=== PATIENT | male | born 1990 | race Caucasian/White ===

== ENCOUNTER 2017-05-13 18:02 | Emergency (ER) | payer SELFPAY ==
[~2017-05-13] VITALS: Ht 200.7 cm; Wt 136.4 kg
[2017-05-13 18:10] VITALS: BP 151/81; PULSE 79; TEMP 98.2
[2017-05-13 19:14] LABS: BASO # 0.1 (0.0-0.2); BASO % 0.8 % (0.0-2.0); EOS # 0.5 (0.0-0.7); EOS % 6.3 % (0-4.0); GRAN # 4.1 (1.4-6.5); GRAN % 53.6 % (42.2-75.2); HEMATOCRIT 40.1 % (42.0-52.0); HEMOGLOBIN 13.9 g/dl (13.5-18.0); LYMPH # 2.3 (1.2-3.4); LYMPH % 30.8 % (20.0-51.0); MEAN CELL VOLUME 86 fl (80.0-100.0); MEAN CORPUSCULAR HEMOGLOBIN 30 pg (27.0-31.0); MEAN CORPUSCULAR HGB CONC 35 g/dl (33.0-37.0); MEAN PLATELET VOLUME 10.2 fl (7.4-10.4); MONO # 0.6 (0.1-0.6); MONO % 8.4 % (1.7-9.3); PLATELET COUNT 279 K/mm3 (130-400); RED BLOOD COUNT 4.64 M/mm3 (4.20-5.60); REDCELL DISTRIBUTION WIDTH-CV 11.7 % (11.5-14.5); WHITE BLOOD COUNT 7.6 K/mm3 (4.8-10.8)
[2017-05-13 19:32] LABS: C-REACTIVE PROTEIN 1.6 mg/dL (0.0-0.9); CALCIUM 9.4 mg/dL (8.4-10.2); CREATININE, serum 0.76 mg/dL (0.66-1.25)
[2017-05-13 19:39] LABS: ERYTHROCYTE SEDIMENTATION RATE 6 mm/hr (0-15)
[2017-05-13] MEDS ORDERED: BACTRIM DS 8001 TAB PO (19:54)
[2017-05-13] MEDS ORDERED: CEPHALEXIN500 M1 PO (19:54)
== END 2017-05-13 20:09 | disposition home or self-care (01) ==
LOC: COL.ER 18:02
PROVIDERS: Nurse Practitioner
DX: R22.41 Localized swelling, mass and lump, right lower limb (principal); I10 Essential (primary) hypertension; F17.210 Nicotine dependence, cigarettes, uncomplicated

== ENCOUNTER 2018-08-26 10:00 | Outpatient (RCR) | payer MEDICAID ==
--- NOTE | 2018-08-15 11:57 | NUR ---
Patient no show for PICC insertion. Lorna Finch contacted Dr. Parisi's office. Doctor office will contact patient and re-schedule PICC placement for in am if able to get ahold of patient. Joon Wilder RN informed.
[2018-08-19 09:45] LABS: HEMATOCRIT 37.9 % (42.0-52.0); HEMOGLOBIN 13.1 g/dl (13.5-18.0); MEAN CELL VOLUME 84 fl (80.0-100.0); MEAN CORPUSCULAR HEMOGLOBIN 29 pg (27.0-31.0); MEAN CORPUSCULAR HGB CONC 35 g/dl (33.0-37.0); MEAN PLATELET VOLUME 10.5 fl (7.4-10.4); PLATELET COUNT 234 K/mm3 (130-400); REDCELL DISTRIBUTION WIDTH-CV 12.7 % (11.5-14.5)
--- NOTE | 2018-08-19 09:45 | NUR ---
PICC intact right upper arm with sterile dressing change done with insertion site cleansed with chloraprep x 1, skin prep, stat lock, and tegaderm applied. no signs or symptoms of IV complications noted. no concerns voiced. re-wrapped with claudia to protect catheter. to return next Wednesday for cares. voiced understanding of instructions.
[2018-08-19 09:47] VITALS: BP 111/54; PULSE 63; TEMP 97.2
[2018-08-19 09:51] LABS: BAND 21 % (0-10); LYMPHOCYTE 16 % (20.0-51.0); NEUTROPHILS 58 % (42.0-75.2); PLATELET ESTIMATE NORMAL (NORMAL)
[~2018-08-26] VITALS: Ht 198.1 cm; Wt 143.0 kg
[~2018-08-26 10:00] MED LIST: BACTRIM DS 8001 TAB PO; CEPHALEXIN500 M1 PO; NEURONTIN300 MG/CAP PO; ZOFRAN 4MG T4 MG/TAB PO; ZOFRAN ODT4 MG PO
--- NOTE | 2018-08-26 10:15 | NUR ---
PICC intact right upper arm. With sterile technique right upper arm PICC dressing change done with insertion site cleansed with ChloraPrep 1, StatLock, skin prep, and Tegaderm applied. No signs or symptoms of IV complications noted. No concerns voiced. With Lalo to protect catheter. Patient to return next week for cares. Patient voiced understanding of instructions.
[2018-08-26 10:16] VITALS: BP 125/74; PULSE 93; TEMP 98.3
[2018-08-26 10:17] LABS: HEMATOCRIT 38.6 % (42.0-52.0); HEMOGLOBIN 13.2 g/dl (13.5-18.0); MEAN CELL VOLUME 85 fl (80.0-100.0); MEAN CORPUSCULAR HEMOGLOBIN 29 pg (27.0-31.0); MEAN CORPUSCULAR HGB CONC 34 g/dl (33.0-37.0); PLATELET COUNT 263 K/mm3 (130-400); RED BLOOD COUNT 4.53 M/mm3 (4.20-5.60); REDCELL DISTRIBUTION WIDTH-CV 12.3 % (11.5-14.5)
[2018-08-26 10:47] LABS: BAND 42 % (0-10); EOSINOPHIL 10 % (0-4); LYMPHOCYTE 25 % (20.0-51.0); METAMYELOCYTE 2 % (0-0); NEUTROPHILS 19 % (42.0-75.2); PLATELET ESTIMATE NORMAL (NORMAL)
[2018-08-26 10:48] LABS: POLYCHROMASIA 1+
== END 2018-08-29 08:23 | disposition home or self-care (01) ==
LOC: EUO 10:00
PROVIDERS: Internal Medicine Medical Oncology
DX: C49.21 Malignant neoplasm of connective and soft tissue of right lower limb, including hip (principal); Z45.2 Encounter for adjustment and management of vascular access device; Z95.9 Presence of cardiac and vascular implant and graft, unspecified; Z48.00 Encounter for change or removal of nonsurgical wound dressing

== ENCOUNTER 2018-09-12 08:24 | Inpatient (IN) | payer MEDICAID ==
[~2018-09-12] VITALS: Ht 198.1 cm; Wt 140.2 kg
[2018-09-12 08:50] VITALS: BP 123/65; PULSE 83; TEMP 98.2
[2018-09-12 08:51] VITALS: BP 123/65; PULSE 83; TEMP 98.2
[2018-09-12 09:17] LABS: HEMATOCRIT 37.4 % (42.0-52.0); HEMOGLOBIN 12.7 g/dl (13.5-18.0); MEAN CELL VOLUME 86 fl (80.0-100.0); MEAN CORPUSCULAR HEMOGLOBIN 29 pg (27.0-31.0); MEAN CORPUSCULAR HGB CONC 34 g/dl (33.0-37.0); MEAN PLATELET VOLUME 10.7 fl (7.4-10.4); PLATELET COUNT 346 K/mm3 (130-400); RED BLOOD COUNT 4.34 M/mm3 (4.20-5.60)
--- NOTE | 2018-09-12 09:20 | NUR ---
Pt alert and oriented and denies pain, SOB, or dizziness. Pt has friend at bedside. Pt PICC in right upper is going to be changed to double lumen for hydration and chemo. Pt has call light in reach and oriented to room. Pt assessment completed. 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 Pt denies needs at this time.
[2018-09-12 09:27] LABS: ALBUMIN 4.2 gm/dL (3.5-5.0); BILIRUBIN,TOTAL 0.6 mg/dL (0.0-1.0); CALCIUM 9.5 mg/dL (8.4-10.2); CREATININE, serum 0.62 mg/dL (0.66-1.25); MAGNESIUM 1.7 mg/dL (1.6-2.3); PHOSPHOROUS 3.8 mg/dL (2.5-4.5); POTASSIUM 4.1 mmol/L (3.4-5.0); TOTAL PROTEIN 7.2 gm/dL (6.4-8.2)
[2018-09-12 09:51] LABS: BASOPHIL 1 % (0-2); LYMPHOCYTE 23 % (20.0-51.0); NEUTROPHILS 72 % (42.0-75.2); PLATELET ESTIMATE NORMAL (NORMAL)
--- NOTE | 2018-09-12 09:56 | NUR ---
Pt consent for chemotherapy was signed after current plan was reviewed with pt. I did speak with Dr Parisi about some order clarification and was given an order for a dual lumen PICC to replace the single lumen PICC. Pt was given printed information on the chemotherapy drugs he will recieve with this cycle including ifosfamide and etoposide, along with mesna as he recieved before with first round of chemotherapy. He reports a significant wt loss since last admission. We did discuss food issues and he reports as good appetite but still wt loss. Will ask dietary to talk with him during his stay.
--- NOTE | 2018-09-12 10:28 | NUR ---
Hydration fluids started per purple line of PICC at completion of PICC replacement. Pt eating [employer] for breakfast and in good spirits.
[2018-09-12 11:14] LABS: COLLECTION METHOD CLEAN CATCH
[2018-09-12 11:22] LABS: MUCOUS Present /lpf; PH 7 (5-8); SQUAMOUS EPITHELIAL None Seen /hpf; URINE APPEARANCE Clear; URINE BACTERIA None Seen /hpf; URINE BILIRUBIN Negative (NEGATIVE); URINE BLOOD Negative (NEGATIVE); URINE COLOR Yellow; URINE GLUCOSE Negative (NEGATIVE); URINE KETONE Negative (NEGATIVE); URINE LEUKOCYTE ESTERASE Negative (NEGATIVE); URINE NITRATE Negative (NEGATIVE); URINE PROTEIN(semi-quant) Negative (NEGATIVE); URINE RBC 0-2 /hpf; URINE UROBILINOGEN Negative (NEGATIVE); URINE WBC 0-2 /hpf
[2018-09-12 12:08] VITALS: BP 125/73; PULSE 97; TEMP 97.4
--- NOTE | 2018-09-12 12:28 | NUR ---
Anticipate start of chemotherapy at 1pm so have started antiemetics to infuse through red line, starting with Emend which it is recommended be given 1 hour ahead of chemotherapy.
--- NOTE | 2018-09-12 13:58 | NUR ---
Anti emetics have been given in last hour of hydration. Ifosfamide and etoposide were verified correct with Kassie Gutierrez RN by comparing printed order with printed label. New hydration bag hung with Mg, K+ to infuse over 12 hours. Following chemotherapy administration protocal, appropriate PPE was donned and Ifosfamide and etoposide hung to infuse one after the other as ordered. Appropriate chemotherapy signage at door and chemotherapy PPE supplies are outside the door. Pt has fallen asleep at this time, lights dimmed.
--- NOTE | 2018-09-12 14:10 | NUR ---
Neuro check done prior to start of chemotherapy. Pt cooperative. 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
[2018-09-12 17:14] VITALS: BP 121/73; PULSE 96; TEMP 97.5
--- NOTE | 2018-09-12 18:44 | NUR ---
Pt alert and oriented and stable this afternoon. Pt chemo meds administered by Ame SALEEM. Pt denies pain. Pt reported constipation and stool softners added by Dr. Beach. Pt has call light in reach. Chemo precautions in place. Pt denies nausea and eating supper without issue now.
--- NOTE | 2018-09-12 19:16 | NUR ---
Chemotherapy has infused and line was flushed with NS 20ml upon completion.
[2018-09-12 20:52] VITALS: BP 123/62; PULSE 103; TEMP 97.9
--- NOTE | 2018-09-12 21:38 | NUR ---
Up to restroom and returned to bed, standby assist. Assessment complete. Lungs clear. Heart sounds normal. Pulses strong. Denies pain. Denies needs at this time. Infusion going to PICC in right upper arm. Denies any change in sx at this time.
[2018-09-13 00:32] VITALS: BP 120/67; PULSE 92; TEMP 98.4
--- NOTE | 2018-09-13 03:49 | NUR ---
Up to restroom and returned to bed. Call light in reach.
[2018-09-13 04:22] VITALS: BP 134/63; PULSE 74; TEMP 97.6
--- NOTE | 2018-09-13 04:23 | NUR ---
Resting in bed on phone. Denies needs. Call light in reach.
--- NOTE | 2018-09-13 06:11 | NUR ---
Uneventful night. Resting in bed this AM on cell phone. Denied needs. Call light in reach.
[2018-09-13 06:20] LABS: BASO % 0.1 % (0.0-2.0); GRAN # 10.7 (1.4-6.5); GRAN % 89.5 % (42.2-75.2); HEMOGLOBIN 11.9 g/dl (13.5-18.0); LYMPH # 0.5 (1.2-3.4); LYMPH % 4.4 % (20.0-51.0); MEAN CELL VOLUME 88 fl (80.0-100.0); MEAN CORPUSCULAR HEMOGLOBIN 29 pg (27.0-31.0); MEAN CORPUSCULAR HGB CONC 33 g/dl (33.0-37.0); MONO # 0.7 (0.1-0.6); MONO % 5.5 % (1.7-9.3); PLATELET COUNT 346 K/mm3 (130-400); RED BLOOD COUNT 4.09 M/mm3 (4.20-5.60)
[2018-09-13 06:26] LABS: HEMATOCRIT 35.8 % (42.0-52.0)
[2018-09-13 06:45] LABS: CALCIUM 9.2 mg/dL (8.4-10.2); CREATININE, serum 0.62 mg/dL (0.66-1.25); POTASSIUM 4.2 mmol/L (3.4-5.0)
[2018-09-13 07:05] VITALS: BP 118/61; PULSE 75; TEMP 98.4
[2018-09-13 08:49] LABS: COLLECTION METHOD CLEAN CATCH
[2018-09-13 08:59] LABS: PH 7 (5-8); SQUAMOUS EPITHELIAL None Seen /hpf; URINE APPEARANCE Clear; URINE BACTERIA None Seen /hpf; URINE BILIRUBIN Negative (NEGATIVE); URINE BLOOD Negative (NEGATIVE); URINE COLOR Straw; URINE GLUCOSE Negative (NEGATIVE); URINE KETONE 1+ (NEGATIVE); URINE LEUKOCYTE ESTERASE Negative (NEGATIVE); URINE NITRATE Negative (NEGATIVE); URINE PROTEIN(semi-quant) Negative (NEGATIVE); URINE RBC 0-2 /hpf; URINE UROBILINOGEN Negative (NEGATIVE); URINE WBC 0-2 /hpf
--- NOTE | 2018-09-13 08:59 | NUR ---
Pt resting in bed with call light within reach. IVF infusing to right upper PICC without complications. Good urine output. Denies further needs at this tiem. Will continue to monitor.
--- NOTE | 2018-09-13 09:00 | NUR ---
PICC intact right upper arm. With sterile technique right upper arm PICC dressing change done with insertion site cleansed with ChloraPrep 1, gauze removed with no drainage noted, skin prep, StatLock, and Tegaderm applied. No signs or symptoms of IV complications noted. No concerns voiced. We'll continue to monitor.
--- NOTE | 2018-09-13 10:42 | NUR ---
Pt moved to room 358 with belongings due pt in contact isolation in next to his old room. Pt agreeable. At this point he is denying a problem with nausea but eating lightly this morning. IV site without issue and hydration fluids infusing well. No blood in urine per urinalysis or by visual appearance.
[2018-09-13 11:47] VITALS: BP 121/61; PULSE 86; TEMP 98.1
--- NOTE | 2018-09-13 14:11 | NUR ---
SW attended clinical rounding and met with patient to discuss discharge planning. Patient lives in [place] with his and 5 kids. He is unable to work due to the chemo and amputation. when discharged from here last time patient was set up with [facility] and he obtains his medications from [facility] in [place]. Patient sees Dr Parisi for his cancer treatments. DEREK will continue to follow.
[2018-09-13 15:03] VITALS: BP 140/59; PULSE 91; TEMP 97.5
--- NOTE | 2018-09-13 17:34 | NUR ---
Pt had uneventful day. Chemo infusing per orders, administered by HARPER Mccloud. Denies further needs at this time; will continue to monitor.
--- NOTE | 2018-09-13 19:07 | NUR ---
Report given to HARPER Dominguez. Pt resting in bed.
[2018-09-13 20:49] VITALS: BP 135/67; PULSE 95; TEMP 97.5
--- NOTE | 2018-09-13 22:33 | NUR ---
Resting in bed at time of assessment. Lungs clear. Heart sounds normal. Denies pain. Patient reports he is "bored" in room. Placed patient in wheelchair and put a mask on and walked patient in hallways. Denies other needs at this time. Call light in reach.
[2018-09-14 00:31] VITALS: BP 135/69; PULSE 73; TEMP 97.7
--- NOTE | 2018-09-14 01:00 | NUR ---
Resting in bed. Denies needs. Call light in reach.
--- NOTE | 2018-09-14 03:30 | NUR ---
In bed on phone. Denied needs. Call light in reach.
[2018-09-14 05:11] VITALS: BP 118/57; PULSE 76; TEMP 97.7
--- NOTE | 2018-09-14 06:33 | NUR ---
Uneventful night. Resting in bed this AM. Call light in reach.
--- NOTE | 2018-09-14 07:00 | NUR ---
Pt resting soundly upon entering room. Pt independently turned self to other side Reported from coin purse framer RN - pt prefers to stay up all night on electronic devices and sleeps throughout the morning hours. Will come back when AM meds are due to perform assessment.
[2018-09-14 08:01] VITALS: BP 127/68; PULSE 62; TEMP 98.2
[2018-09-14 08:42] LABS: COLLECTION METHOD CLEAN CATCH
[2018-09-14 08:50] LABS: PH 7 (5-8); SQUAMOUS EPITHELIAL 0-2 /hpf; URINE APPEARANCE Clear; URINE BACTERIA None Seen /hpf; URINE BILIRUBIN Negative (NEGATIVE); URINE BLOOD Negative (NEGATIVE); URINE COLOR Yellow; URINE GLUCOSE Negative (NEGATIVE); URINE KETONE 2+ (NEGATIVE); URINE LEUKOCYTE ESTERASE Negative (NEGATIVE); URINE NITRATE Negative (NEGATIVE); URINE PROTEIN(semi-quant) Negative (NEGATIVE); URINE RBC None Seen /hpf; URINE UROBILINOGEN Negative (NEGATIVE); URINE WBC 0-2 /hpf
--- NOTE | 2018-09-14 08:54 | NUR ---
UA collected and to lab. No blood reported in specimen. Will proceed with day #3 chemotherapy.
[2018-09-14 09:52] LABS: BASO % 0.1 % (0.0-2.0); GRAN # 8.1 (1.4-6.5); GRAN % 82.3 % (42.2-75.2); HEMOGLOBIN 11.7 g/dl (13.5-18.0); LYMPH # 0.8 (1.2-3.4); LYMPH % 8.2 % (20.0-51.0); MEAN CELL VOLUME 88 fl (80.0-100.0); MEAN CORPUSCULAR HEMOGLOBIN 30 pg (27.0-31.0); MEAN CORPUSCULAR HGB CONC 34 g/dl (33.0-37.0); MEAN PLATELET VOLUME 10.8 fl (7.4-10.4); MONO # 0.9 (0.1-0.6); MONO % 8.9 % (1.7-9.3); PLATELET COUNT 326 K/mm3 (130-400); RED BLOOD COUNT 3.95 M/mm3 (4.20-5.60); REDCELL DISTRIBUTION WIDTH-CV 14.5 % (11.5-14.5)
[2018-09-14 09:53] LABS: HEMATOCRIT 34.9 % (42.0-52.0)
[2018-09-14 10:03] LABS: CALCIUM 9.2 mg/dL (8.4-10.2); CREATININE, serum 0.62 mg/dL (0.66-1.25)
[2018-09-14 10:59] VITALS: BP 129/59; PULSE 89; TEMP 97.5
--- NOTE | 2018-09-14 12:19 | NUR ---
First visit from the hospice music therapist. No needs right now.
--- NOTE | 2018-09-14 15:26 | NUR ---
Pt has been tolerating his chemotherapy well. Zofran and decadron given prechemotherapy. Pt moved to room 359 to get most distance from other isolation patients. Chemotherapy precautions remain in place. Signage at door. Chemotherapy drugs verified correct with Kathy Das RN by comparing printed label and written orders. After + blood return verified, Ifosfamide infusion started to run over three hours and then etoposide infusion is to start. Jesu Maldonado RN is to discontinue the infusion upon completion.
[2018-09-14 16:27] VITALS: BP 139/65; PULSE 83; TEMP 98.4
--- NOTE | 2018-09-14 20:21 | NUR ---
Resting in bed. Assessment complete. Lungs clear. Heart sounds normal. Denies pain. Denies needs at this time. Chemo infusion complete and disconnected by HARPER Nails. Call light in reach.
[2018-09-14 22:12] VITALS: BP 127/62; PULSE 93; TEMP 98.5
--- NOTE | 2018-09-15 01:03 | NUR ---
UP to restroom and returned to bed.
[2018-09-15 01:46] VITALS: BP 105/43; PULSE 59; TEMP 97.6
--- NOTE | 2018-09-15 04:01 | NUR ---
Resting in bed. Call light in reach.
[2018-09-15 05:26] VITALS: BP 121/64; PULSE 55; TEMP 97.6
[2018-09-15 06:01] LABS: GRAN # 6.5 (1.4-6.5); GRAN % 79.6 % (42.2-75.2); MEAN CELL VOLUME 89 fl (80.0-100.0); MEAN CORPUSCULAR HEMOGLOBIN 29 pg (27.0-31.0); MEAN CORPUSCULAR HGB CONC 33 g/dl (33.0-37.0); MEAN PLATELET VOLUME 11.1 fl (7.4-10.4); MONO # 0.6 (0.1-0.6); MONO % 7.9 % (1.7-9.3); PLATELET COUNT 296 K/mm3 (130-400); RED BLOOD COUNT 3.74 M/mm3 (4.20-5.60); REDCELL DISTRIBUTION WIDTH-CV 14.2 % (11.5-14.5)
[2018-09-15 06:03] LABS: HEMATOCRIT 33.4 % (42.0-52.0)
--- NOTE | 2018-09-15 06:18 | NUR ---
Uneventful night. Resting in bed this AM. Call light in reach.
[2018-09-15 06:22] LABS: CALCIUM 8.9 mg/dL (8.4-10.2); CREATININE, serum 0.58 mg/dL (0.66-1.25); MAGNESIUM 2.1 mg/dL (1.6-2.3); POTASSIUM 4.1 mmol/L (3.4-5.0)
--- NOTE | 2018-09-15 07:15 | NUR ---
Pt AAOX3 in good spirits stating "these days required days to stay in hospital have flown by. Wednesday will be here before I know it where I will get to spend time with my and 5 children". Call light within reach. No compalints at this time
[2018-09-15 08:19] VITALS: BP 137/86; PULSE 60; TEMP 97.6
[2018-09-15 09:41] LABS: COLLECTION METHOD CLEAN CATCH
[2018-09-15 09:52] LABS: MUCOUS Present /lpf; PH 7 (5-8); SQUAMOUS EPITHELIAL None Seen /hpf; URINE APPEARANCE Cloudy; URINE BACTERIA Rare /hpf; URINE BILIRUBIN Negative (NEGATIVE); URINE BLOOD Negative (NEGATIVE); URINE COLOR Yellow; URINE GLUCOSE Negative (NEGATIVE); URINE KETONE 2+ (NEGATIVE); URINE LEUKOCYTE ESTERASE Negative (NEGATIVE); URINE NITRATE Negative (NEGATIVE); URINE PROTEIN(semi-quant) Negative (NEGATIVE); URINE RBC 0-2 /hpf; URINE UROBILINOGEN Negative (NEGATIVE); URINE WBC 0-2 /hpf
[2018-09-15 11:27] VITALS: BP 115/55; PULSE 84; TEMP 98
--- NOTE | 2018-09-15 13:28 | NUR ---
Premedications started with change of IV bag and tubing for hydration fluids. UA is free of blood. Neuro exam is normal. + blood return verified per purple line.
--- NOTE | 2018-09-15 15:29 | NUR ---
Chemotherapy delayed with tubing malfunction but started as soon as drug returned from pharmacy. Drug was verified correct with Todd Stark RN by comparing printed order with printed label. Scanner is not working in room so drug administration was manually entered after verification of pt's identity. I have contacted office and plan is for pt to have neulasta placed on Wednesday after he is discharged from the hospital at the office of Dr Parisi. Sarahi is the nurse who would like to be called by our nursing staff at discharge at the following number [phone]. We will plan on chemotherapy in three weeks.
[2018-09-15 15:36] VITALS: BP 122/64; PULSE 96; TEMP 97.4
[2018-09-15 18:49] VITALS: BP 123/56; PULSE 92; TEMP 98.3
--- NOTE | 2018-09-15 18:56 | NUR ---
Since taking over care the pt has been resting quietly. He has remained free of pain. Pt is sitting up in the bed watching TV at this time and he denies further needs. Call light within reach. Report given to HARPER Castaneda.
--- NOTE | 2018-09-15 21:46 | NUR ---
Pt resting in bed napping, in good spirits, talkative and appropriate, no C/O pain at this time, shift assessments completed with no signficant findings, left Pt bed in lowest position, call light in reach.
[2018-09-16] VITALS (7 sets, daily range): BP systolic 111–143; BP diastolic 53–86; PULSE 62–99; TEMP 97.8–98.6
--- NOTE | 2018-09-16 06:16 | NUR ---
Pt slept well through the night, no C/O of pain, has a very positive attitude and pleasant. VS have been stable during the night.
[2018-09-16 06:20] LABS: BASO % 0.2 % (0.0-2.0); GRAN # 4.5 (1.4-6.5); HEMOGLOBIN 11.3 g/dl (13.5-18.0); LYMPH # 1.1 (1.2-3.4); LYMPH % 18.4 % (20.0-51.0); MEAN CELL VOLUME 88 fl (80.0-100.0); MEAN CORPUSCULAR HEMOGLOBIN 29 pg (27.0-31.0); MEAN CORPUSCULAR HGB CONC 33 g/dl (33.0-37.0); MEAN PLATELET VOLUME 11.3 fl (7.4-10.4); MONO # 0.3 (0.1-0.6); MONO % 5.7 % (1.7-9.3); PLATELET COUNT 286 K/mm3 (130-400); RED BLOOD COUNT 3.84 M/mm3 (4.20-5.60); REDCELL DISTRIBUTION WIDTH-CV 13.8 % (11.5-14.5)
[2018-09-16 06:32] LABS: HEMATOCRIT 33.8 % (42.0-52.0)
[2018-09-16 06:38] LABS: CALCIUM 8.9 mg/dL (8.4-10.2); CREATININE, serum 0.61 mg/dL (0.66-1.25); MAGNESIUM 2.1 mg/dL (1.6-2.3)
--- NOTE | 2018-09-16 08:45 | NUR ---
Assessment complete. Pt is AXO X3, denies having any pain at this time. Breathing is even and unlabored on room air. R upper arm PICC line infusing, remains free of complications, and is CDI. Pt is sitting up in the bed eating his breakfast at this time and he denies further needs. Call light within reach, will continue to monitor.
[2018-09-16 10:54] LABS: COLLECTION METHOD CLEAN CATCH
[2018-09-16 11:08] LABS: MUCOUS Present /lpf; PH 8 (5-8); SQUAMOUS EPITHELIAL None Seen /hpf; URINE APPEARANCE Cloudy; URINE BACTERIA None Seen /hpf; URINE BILIRUBIN Negative (NEGATIVE); URINE BLOOD Negative (NEGATIVE); URINE COLOR Yellow; URINE GLUCOSE Negative (NEGATIVE); URINE KETONE 2+ (NEGATIVE); URINE LEUKOCYTE ESTERASE Negative (NEGATIVE); URINE NITRATE Negative (NEGATIVE); URINE PROTEIN(semi-quant) Negative (NEGATIVE); URINE RBC None Seen /hpf; URINE UROBILINOGEN Negative (NEGATIVE); URINE WBC 0-2 /hpf
--- NOTE | 2018-09-16 11:28 | NUR ---
Pt is on day 5 of chemotherapy with ifosfamide and etoposide and is tolerating well. He denies nausea but reports his appetite is less today. He is still eating quite well. We reviewed that he will continue to have weekly labs with his PICC line care on Fridays. Our staff will call Danielle, the office nurse, to advise her of discharge and she will meet him at the office to given the neulasta injection. Her number is [phone].
--- NOTE | 2018-09-16 13:10 | NUR ---
PICC intact right upper arm. With sterile technique right upper arm PICC dressing change done with insertion site cleansed with ChloraPrep 1, chlorhexidine impregnated disc applied, skin prep, StatLock, and Tegaderm applied. No signs or symptoms of IV complications noted. No concerns voiced. Plan is for patient to return to express unit next Wednesday for PICC cares. Patient voiced understanding of instructions.
--- NOTE | 2018-09-16 14:32 | NUR ---
Premedications have infused. Ifosfamide and etoposide verified correct with Karyna Lewis RN by comparing printed label with printed orders. Using appropriate chemotherapy precautions, ifosfamide was started per red port to infused and then be followed by etoposide. Jesu Maldonado RN, ghent superviosor was notified of start of chemotherapy and will be available to dc when completed around 0. Report to Roger about discharge plan. Pt anxious for discharge tomorrow.
--- NOTE | 2018-09-16 18:34 | NUR ---
Pt has been resting on and off throughout the day. He has remained free of pain. Pt is sitting up in the bed watching TV at this time and he denies further needs. Call light within reach.
--- NOTE | 2018-09-16 18:56 | NUR ---
Report given to HARPER Hernandez.
--- NOTE | 2018-09-16 21:46 | NUR ---
Patient resting in bed, chemotherapy stopped/disconnected by boiler house operator. Denies pain. Assessment completed, VSS. No further needs at this time.
[2018-09-17 03:38] VITALS: BP 118/60; PULSE 64; TEMP 97.5
--- NOTE | 2018-09-17 05:27 | NUR ---
Patient slept on/off last night, denies pain, VSS. PICC site free of complciations.
[2018-09-17 06:18] LABS: EOS % 0.2 % (0-4.0); GRAN # 3.9 (1.4-6.5); GRAN % 74.4 % (42.2-75.2); HEMATOCRIT 33.8 % (42.0-52.0); HEMOGLOBIN 11.2 g/dl (13.5-18.0); LYMPH # 1.2 (1.2-3.4); LYMPH % 22.3 % (20.0-51.0); MEAN CELL VOLUME 88 fl (80.0-100.0); MEAN CORPUSCULAR HEMOGLOBIN 29 pg (27.0-31.0); MEAN CORPUSCULAR HGB CONC 33 g/dl (33.0-37.0); MEAN PLATELET VOLUME 10.9 fl (7.4-10.4); MONO # 0.1 (0.1-0.6); MONO % 2.7 % (1.7-9.3); PLATELET COUNT 282 K/mm3 (130-400); RED BLOOD COUNT 3.86 M/mm3 (4.20-5.60); REDCELL DISTRIBUTION WIDTH-CV 13.4 % (11.5-14.5)
[2018-09-17 06:36] LABS: CALCIUM 8.8 mg/dL (8.4-10.2); CREATININE, serum 0.6 mg/dL (0.66-1.25); MAGNESIUM 2.1 mg/dL (1.6-2.3)
--- NOTE | 2018-09-17 07:00 | NUR ---
Report received from HARPER Hernandez. Pt in bed resting, denies needs, will continue to monitor.
[2018-09-17 07:58] VITALS: BP 123/69; PULSE 64; TEMP 97.7
--- NOTE | 2018-09-17 08:06 | NUR ---
Pt feeling well, resting in bed, anticipating discharge today to go home to family. Denies pain, nausea, vomiting. Urine is yellow and clear. CORTES PICC good blood return and flushes well. Purple port has IVF running. Assessmenet charted, will continue to monitor.
--- NOTE | 2018-09-17 11:48 | NUR ---
Discharge teaching completed at this time. Called Danielle at Dr. Parisi's office, they will be adminstering his medications and meeting him there shortly. PICC wrapped with RUBEN wrap and heparinized. Discharge packet given. Pt verbalized understanding. Discharged out by myself, left with all belongings, friend to drive to Ailin's office. Criteria met.
== END 2018-09-17 11:48 | disposition home or self-care (01) | DRG 847 ==
LOC: MEDICAL 08:24
PROVIDERS: Internal Medicine Medical Oncology; Physician Assistant; ADMIT Internal Medicine
PROC: 02HV33Z Insertion of Infusion Device into Superior Vena Cava, Percutaneous Approach (ICD-10-PCS; principal; 2018-09-12)
PROC: 02PYX3Z Removal of Infusion Device from Great Vessel, External Approach (ICD-10-PCS; 2018-09-12)
DX: Z51.11 Encounter for antineoplastic chemotherapy (principal); C40.31 Malignant neoplasm of short bones of right lower limb; C78.02 Secondary malignant neoplasm of left lung; Z23 Encounter for immunization; Z89.511 Acquired absence of right leg below knee; I10 Essential (primary) hypertension; F41.9 Anxiety disorder, unspecified; Z87.891 Personal history of nicotine dependence; K59.00 Constipation, unspecified
CPT/HCPCS: 99223-AI; 99231-AI; 99232-AI; 99239; C1751; C1894; J1100; J1453; J1650; J2405; J3475; J3480; J7030; J7040; J9181; J9208; J9209

== ENCOUNTER 2018-11-25 10:00 | Outpatient (RCR) | payer MEDICAID ==
--- NOTE | 2018-09-02 09:15 | NUR ---
patient here for cares in the express unit. With sterile technique right upper arm PICC dressing change done with insertion site cleansed with ChloraPrep 1, skin prep, StatLock, and Tegaderm applied. No signs or symptoms of IV complications noted. Ears voiced. Patient to return next Wednesday for cares. Voiced understanding of instructions.
[2018-09-02 09:29] VITALS: BP 142/76; PULSE 85; TEMP 98
[2018-09-02 09:38] LABS: HEMATOCRIT 39.6 % (42.0-52.0); HEMOGLOBIN 13.6 g/dl (13.5-18.0); MEAN CELL VOLUME 85 fl (80.0-100.0); MEAN CORPUSCULAR HEMOGLOBIN 29 pg (27.0-31.0); MEAN CORPUSCULAR HGB CONC 34 g/dl (33.0-37.0); MEAN PLATELET VOLUME 11.3 fl (7.4-10.4); PLATELET COUNT 160 K/mm3 (130-400); RED BLOOD COUNT 4.68 M/mm3 (4.20-5.60); REDCELL DISTRIBUTION WIDTH-CV 12.9 % (11.5-14.5)
[2018-09-02 09:48] LABS: ALBUMIN 4.4 gm/dL (3.5-5.0); BILIRUBIN,TOTAL 0.4 mg/dL (0.0-1.0); CALCIUM 9.6 mg/dL (8.4-10.2); CREATININE, serum 0.71 mg/dL (0.66-1.25); POTASSIUM 4.3 mmol/L (3.4-5.0); TOTAL PROTEIN 7.5 gm/dL (6.4-8.2)
[2018-09-02 10:17] LABS: BAND 9 % (0-10); EOSINOPHIL 1 % (0-4); LYMPHOCYTE 31 % (20.0-51.0); METAMYELOCYTE 1 % (0-0); NEUTROPHILS 51 % (42.0-75.2)
[2018-09-02 10:18] LABS: PLATELET ESTIMATE NORMAL (NORMAL)
--- NOTE | 2018-09-09 10:00 | NUR ---
PICC intact right upper arm with sterile dressing change done with insertion site cleansed with chloraprep x 1, skin prep, stat lock, and tegaderm applied. no signs or symptoms of IV complications noted. no concerns voiced. patient plans to return on Wednesday for chemotherapy.
[2018-09-09 10:21] VITALS: BP 134/72; PULSE 85; TEMP 97.5
[2018-09-09 10:29] LABS: HEMOGLOBIN 13.2 g/dl (13.5-18.0); MEAN CELL VOLUME 86 fl (80.0-100.0); MEAN CORPUSCULAR HEMOGLOBIN 29 pg (27.0-31.0); MEAN CORPUSCULAR HGB CONC 34 g/dl (33.0-37.0); MEAN PLATELET VOLUME 10.8 fl (7.4-10.4); PLATELET COUNT 362 K/mm3 (130-400); RED BLOOD COUNT 4.55 M/mm3 (4.20-5.60); REDCELL DISTRIBUTION WIDTH-CV 13.6 % (11.5-14.5)
[2018-09-09 10:41] LABS: BAND 4 % (0-10); EOSINOPHIL 1 % (0-4); LYMPHOCYTE 26 % (20.0-51.0); NEUTROPHILS 61 % (42.0-75.2); PLATELET ESTIMATE NORMAL (NORMAL)
[2018-09-23 09:00] VITALS: BP 129/83; PULSE 101; TEMP 98.3
--- NOTE | 2018-09-23 09:15 | NUR ---
patient in the express unit for cares. PICC intact right upper arm. With sterile technique right upper arm PICC dressing change done with insertion site cleansed with ChloraPrep 1, chlorhexidine impregnated disc applied, skin prep, StatLock, and Tegaderm applied. No signs or symptoms of IV complications noted. No concerns voiced. Patient to return to express unit next Wednesday for cares. Patient voiced understanding of instructions. Arm wrapped with Lalo to protect catheter.
[2018-09-23 09:41] LABS: HEMATOCRIT 34.7 % (42.0-52.0); HEMOGLOBIN 11.7 g/dl (13.5-18.0); MEAN CELL VOLUME 87 fl (80.0-100.0); MEAN CORPUSCULAR HEMOGLOBIN 30 pg (27.0-31.0); MEAN CORPUSCULAR HGB CONC 34 g/dl (33.0-37.0); MEAN PLATELET VOLUME 9.7 fl (7.4-10.4); PLATELET COUNT 167 K/mm3 (130-400); RED BLOOD COUNT 3.97 M/mm3 (4.20-5.60); REDCELL DISTRIBUTION WIDTH-CV 13.2 % (11.5-14.5)
[2018-09-23 09:50] LABS: ALBUMIN 4.4 gm/dL (3.5-5.0); BILIRUBIN,TOTAL 0.4 mg/dL (0.0-1.0); CALCIUM 9.8 mg/dL (8.4-10.2); CREATININE, serum 0.67 mg/dL (0.66-1.25); MAGNESIUM 1.7 mg/dL (1.6-2.3); TOTAL PROTEIN 7.5 gm/dL (6.4-8.2)
[2018-09-23 09:57] LABS: POTASSIUM 4.3 mmol/L (3.4-5.0)
[2018-09-23 09:59] LABS: BAND 38 % (0-10); EOSINOPHIL 4 % (0-4); LYMPHOCYTE 17 % (20.0-51.0); METAMYELOCYTE 5 % (0-0); MYELOCYTE 1 % (0-0); NEUTROPHILS 9 % (42.0-75.2); NUCLEATED RED BLOOD CELL 6 (0-6)
[2018-09-23 10:02] LABS: PLATELET ESTIMATE NORMAL (NORMAL); POLYCHROMASIA 1+
[2018-09-26 08:07] LABS: PATHOLOGY DIFF REVIEW OK
[2018-09-30 11:02] LABS: HEMOGLOBIN 12.4 g/dl (13.5-18.0); MEAN CELL VOLUME 87 fl (80.0-100.0); MEAN CORPUSCULAR HEMOGLOBIN 29 pg (27.0-31.0); MEAN CORPUSCULAR HGB CONC 34 g/dl (33.0-37.0); MEAN PLATELET VOLUME 10.3 fl (7.4-10.4); PLATELET COUNT 130 K/mm3 (130-400); RED BLOOD COUNT 4.25 M/mm3 (4.20-5.60); REDCELL DISTRIBUTION WIDTH-CV 13.5 % (11.5-14.5)
[2018-09-30 11:17] VITALS: BP 132/84; PULSE 94
[2018-09-30 11:51] LABS: BAND 9 % (0-10); BASOPHIL 3 % (0-2); EOSINOPHIL 3 % (0-4); LYMPHOCYTE 20 % (20.0-51.0); MYELOCYTE 1 % (0-0); NEUTROPHILS 60 % (42.0-75.2); NUCLEATED RED BLOOD CELL 1 (0-6); PLATELET ESTIMATE DECREASED (NORMAL)
[2018-09-30 11:52] LABS: POLYCHROMASIA 1+
--- NOTE | 2018-10-07 10:00 | NUR ---
PICC intact right upper arm. With sterile technique right upper arm PICC dressing change done with insertion site cleansed with ChloraPrep 1, chlorhexidine impregnated disc applied, skin prep, StatLock, and Tegaderm applied. No signs or symptoms of IV complications noted. No concerns voiced. Patient to return next week for cares. Patient voiced understanding of instructions.
[2018-10-07 10:18] VITALS: BP 117/75; PULSE 84; TEMP 97.3
[2018-10-07 10:20] LABS: HEMOGLOBIN 12.5 g/dl (13.5-18.0); MEAN CELL VOLUME 88 fl (80.0-100.0); MEAN CORPUSCULAR HEMOGLOBIN 30 pg (27.0-31.0); MEAN CORPUSCULAR HGB CONC 34 g/dl (33.0-37.0); MEAN PLATELET VOLUME 10.5 fl (7.4-10.4); PLATELET COUNT 312 K/mm3 (130-400); RED BLOOD COUNT 4.15 M/mm3 (4.20-5.60)
[2018-10-07 10:21] LABS: HEMATOCRIT 36.7 % (42.0-52.0)
[2018-10-07 10:34] LABS: EOSINOPHIL 2 % (0-4); LYMPHOCYTE 16 % (20.0-51.0); NEUTROPHILS 74 % (42.0-75.2); PLATELET ESTIMATE NORMAL (NORMAL)
--- NOTE | 2018-10-14 09:30 | NUR ---
PICC intact right upper arm with sterile dressing change done with insertion site cleansed with chloraprep x 1, chlorhexidine impregnated disk applied, skin prep, stat lock, and tegaderm applied. no signs or symptoms of IV complications noted. no concerns voiced. re-wrapped with claudia to protect catheter. to return next week for cares. voiced understanding of instructions.
[2018-10-14 09:35] LABS: HEMATOCRIT 37.4 % (42.0-52.0); HEMOGLOBIN 12.6 g/dl (13.5-18.0); MEAN CELL VOLUME 88 fl (80.0-100.0); MEAN CORPUSCULAR HEMOGLOBIN 30 pg (27.0-31.0); MEAN CORPUSCULAR HGB CONC 34 g/dl (33.0-37.0); MEAN PLATELET VOLUME 10.4 fl (7.4-10.4); PLATELET COUNT 301 K/mm3 (130-400); RED BLOOD COUNT 4.25 M/mm3 (4.20-5.60); REDCELL DISTRIBUTION WIDTH-CV 14.7 % (11.5-14.5)
[2018-10-14 09:41] LABS: ALBUMIN 4.2 gm/dL (3.5-5.0); BILIRUBIN,TOTAL 0.4 mg/dL (0.0-1.0); CALCIUM 9.5 mg/dL (8.4-10.2); CREATININE, serum 0.63 mg/dL (0.66-1.25); MAGNESIUM 1.7 mg/dL (1.6-2.3); POTASSIUM 4.3 mmol/L (3.4-5.0); TOTAL PROTEIN 7.4 gm/dL (6.4-8.2)
[2018-10-14 09:49] VITALS: BP 128/73; PULSE 90; TEMP 97.2
[2018-10-14 10:15] LABS: BAND 2 % (0-10); EOSINOPHIL 4 % (0-4); LYMPHOCYTE 23 % (20.0-51.0); NEUTROPHILS 65 % (42.0-75.2); PLATELET ESTIMATE NORMAL (NORMAL)
[2018-10-14 10:16] LABS: HYPOCHROMIA 1+
[2018-10-21 09:40] VITALS: BP 121/54; PULSE 79; TEMP 98
[2018-10-21 09:52] LABS: HEMOGLOBIN 12.3 g/dl (13.5-18.0); MEAN CELL VOLUME 90 fl (80.0-100.0); MEAN CORPUSCULAR HEMOGLOBIN 30 pg (27.0-31.0); MEAN CORPUSCULAR HGB CONC 33 g/dl (33.0-37.0); MEAN PLATELET VOLUME 10.1 fl (7.4-10.4); PLATELET COUNT 251 K/mm3 (130-400); RED BLOOD COUNT 4.11 M/mm3 (4.20-5.60)
[2018-10-21 09:53] LABS: HEMATOCRIT 36.8 % (42.0-52.0)
[2018-10-21 10:45] LABS: BAND 28 % (0-10); EOSINOPHIL 1 % (0-4); LYMPHOCYTE 2 % (20.0-51.0); NEUTROPHILS 68 % (42.0-75.2); PLATELET ESTIMATE NORMAL (NORMAL)
[2018-10-28 10:20] VITALS: BP 164/76; PULSE 88
--- NOTE | 2018-10-28 10:40 | NUR ---
Here for cares. With sterile technique right upper arm PICC dressing change done with insertion site cleansed with ChloraPrep 1, chlorhexidine impregnated disc applied, skin prep, StatLock, and Tegaderm applied. No signs or symptoms of IV complications noted. No concerns voiced. Patient to return next week for cares. Patient voiced understanding of instructions. Arm wrapped Lalo to protect catheter.
[2018-10-28 17:26] LABS: HEMATOCRIT 38.3 % (42.0-52.0); HEMOGLOBIN 12.6 g/dl (13.5-18.0); MEAN CELL VOLUME 89 fl (80.0-100.0); MEAN CORPUSCULAR HEMOGLOBIN 29 pg (27.0-31.0); MEAN CORPUSCULAR HGB CONC 33 g/dl (33.0-37.0); PLATELET COUNT 203 K/mm3 (130-400); RED BLOOD COUNT 4.29 M/mm3 (4.20-5.60); REDCELL DISTRIBUTION WIDTH-CV 13.8 % (11.5-14.5)
[2018-10-28 17:29] LABS: BAND 31 % (0-10); LYMPHOCYTE 16 % (20.0-51.0); METAMYELOCYTE 1 % (0-0); MYELOCYTE 8 % (0-0); NEUTROPHILS 41 % (42.0-75.2); PLATELET ESTIMATE NORMAL (NORMAL)
[2018-11-04 09:35] VITALS: BP 105/67; PULSE 58
[2018-11-04 10:29] LABS: MEAN CELL VOLUME 88 fl (80.0-100.0); MEAN CORPUSCULAR HEMOGLOBIN 30 pg (27.0-31.0); MEAN CORPUSCULAR HGB CONC 34 g/dl (33.0-37.0); MEAN PLATELET VOLUME 10.6 fl (7.4-10.4); PLATELET COUNT 229 K/mm3 (130-400); RED BLOOD COUNT 4.03 M/mm3 (4.20-5.60); REDCELL DISTRIBUTION WIDTH-CV 13.8 % (11.5-14.5)
[2018-11-04 10:31] LABS: HEMATOCRIT 35.3 % (42.0-52.0)
[2018-11-04 10:40] LABS: ALBUMIN 4.1 gm/dL (3.5-5.0); BILIRUBIN,TOTAL 0.4 mg/dL (0.0-1.0); CALCIUM 9.4 mg/dL (8.4-10.2); CREATININE, serum 0.59 mg/dL (0.66-1.25); TOTAL PROTEIN 7.2 gm/dL (6.4-8.2)
[2018-11-04 10:41] VITALS: BP 140/83; PULSE 91
[2018-11-04 13:02] LABS: BAND 16 % (0-10); EOSINOPHIL 2 % (0-4); LYMPHOCYTE 24 % (20.0-51.0); METAMYELOCYTE 1 % (0-0); NEUTROPHILS 40 % (42.0-75.2); PLATELET ESTIMATE NORMAL (NORMAL)
--- NOTE | 2018-11-11 07:45 | NUR ---
Here for cares. with sterile technique right upper arm PICC dressing change done with insertion site cleansed with chloraprep x 1, skin prep, stat lock, and tegaderm applied. no signs or symptoms of IV complications noted. no concerns voiced. patient to return next week for cares. voiced understanding of instructions.
[2018-11-11 07:59] LABS: HEMATOCRIT 33.3 % (42.0-52.0); HEMOGLOBIN 11.5 g/dl (13.5-18.0); MEAN CELL VOLUME 89 fl (80.0-100.0); MEAN CORPUSCULAR HEMOGLOBIN 31 pg (27.0-31.0); MEAN CORPUSCULAR HGB CONC 35 g/dl (33.0-37.0); MEAN PLATELET VOLUME 9.8 fl (7.4-10.4); PLATELET COUNT 343 K/mm3 (130-400); RED BLOOD COUNT 3.76 M/mm3 (4.20-5.60); REDCELL DISTRIBUTION WIDTH-CV 14.3 % (11.5-14.5)
[2018-11-11 08:00] VITALS: BP 139/75; PULSE 90; TEMP 96.9
[2018-11-11 08:28] LABS: BAND 2 % (0-10); LYMPHOCYTE 32 % (20.0-51.0); NEUTROPHILS 59 % (42.0-75.2); PLATELET ESTIMATE NORMAL (NORMAL)
[2018-11-18 10:00] VITALS: BP 138/83; PULSE 97; TEMP 97.2
--- NOTE | 2018-11-18 10:15 | NUR ---
Here for cares. with sterile technique right upper arm PICC dressing change done with insertion site cleansed with chloraprep x 1, chlorhexidine impregnated disk applied, skin prep, stat lock, and tegaderm applied. no signs or symptoms of IV complications noted. no concerns voiced. to return next week for cares. voiced understanding of instructions.
[2018-11-18 10:56] LABS: HEMOGLOBIN 11.7 g/dl (13.5-18.0); MEAN CELL VOLUME 89 fl (80.0-100.0); MEAN CORPUSCULAR HEMOGLOBIN 30 pg (27.0-31.0); MEAN CORPUSCULAR HGB CONC 34 g/dl (33.0-37.0); PLATELET COUNT 157 K/mm3 (130-400); RED BLOOD COUNT 3.92 M/mm3 (4.20-5.60); REDCELL DISTRIBUTION WIDTH-CV 13.9 % (11.5-14.5)
[2018-11-18 10:59] LABS: HEMATOCRIT 34.8 % (42.0-52.0)
[2018-11-18 12:31] LABS: BAND 32 % (0-10); EOSINOPHIL 1 % (0-4); METAMYELOCYTE 3 % (0-0); MYELOCYTE 2 % (0-0); NEUTROPHILS 13 % (42.0-75.2); NUCLEATED RED BLOOD CELL 3 (0-6); PLATELET ESTIMATE NORMAL (NORMAL)
[2018-11-18 12:33] LABS: LYMPHOCYTE 15 % (20.0-51.0)
[2018-11-19 10:37] LABS: PATHOLOGY DIFF REVIEW OK +
[~2018-11-25] VITALS: Ht 198.1 cm; Wt 163.0 kg
[2018-11-25 10:21] VITALS: BP 133/72; PULSE 91; TEMP 97.4
== END 2018-12-01 | disposition home or self-care (01) ==
LOC: EUO
PROVIDERS: Internal Medicine Medical Oncology
DX: C49.9 Malignant neoplasm of connective and soft tissue, unspecified (principal); Z45.2 Encounter for adjustment and management of vascular access device; Z95.9 Presence of cardiac and vascular implant and graft, unspecified; Z48.00 Encounter for change or removal of nonsurgical wound dressing

== ENCOUNTER → 2019-01-20 | Outpatient (CLI) | payer MEDICAID | LOC: COL.RAD 09:45 | DX: C49.21 Malignant neoplasm of connective and soft tissue of right lower limb, including hip (principal); J98.4 Other disorders of lung; K76.0 Fatty (change of) liver, not elsewhere classified; Z95.9 Presence of cardiac and vascular implant and graft, unspecified | CPT/HCPCS: Q9967 ==

== ENCOUNTER 2019-02-24 10:00 | Outpatient (RCR) | payer MEDICAID ==
--- NOTE | 2018-12-02 10:00 | NUR ---
here for cares. PICC intact right upper arm with sterile technique dressing change done insertion site cleansed with ChloraPrep 1, chlorhexidine impregnated disc applied, skin prep, StatLock, and Tegaderm applied. Under symptoms of IV complications noted. No concerns voiced. Plan is for patient to return next week for cares. Patient voiced understanding of instructions.
[2018-12-02 10:13] VITALS: BP 136/82; PULSE 87; TEMP 97.8
[2018-12-02 10:57] LABS: HEMOGLOBIN 10.7 g/dl (13.5-18.0); MEAN CELL VOLUME 90 fl (80.0-100.0); MEAN CORPUSCULAR HEMOGLOBIN 30 pg (27.0-31.0); MEAN CORPUSCULAR HGB CONC 34 g/dl (33.0-37.0); MEAN PLATELET VOLUME 10.5 fl (7.4-10.4); PLATELET COUNT 206 K/mm3 (130-400); RED BLOOD COUNT 3.52 M/mm3 (4.20-5.60); REDCELL DISTRIBUTION WIDTH-CV 14.8 % (11.5-14.5)
[2018-12-02 11:00] LABS: HEMATOCRIT 31.6 % (42.0-52.0)
[2018-12-02 11:06] LABS: ALBUMIN 3.8 gm/dL (3.5-5.0); BILIRUBIN,TOTAL 0.6 mg/dL (0.0-1.0); CALCIUM 9.1 mg/dL (8.4-10.2); CREATININE, serum 0.55 (0.66-1.25); TOTAL PROTEIN 6.6 gm/dL (6.4-8.2)
[2018-12-02 11:14] LABS: BAND 35 % (0-10); LYMPHOCYTE 2 % (20.0-51.0); NEUTROPHILS 62 % (42.0-75.2); PLATELET ESTIMATE NORMAL (NORMAL)
[2018-12-09 10:30] VITALS: BP 134/90; PULSE 95; TEMP 97.7
[2018-12-09 10:42] LABS: HEMATOCRIT 33.2 % (42.0-52.0); HEMOGLOBIN 11.2 g/dl (13.5-18.0); MEAN CELL VOLUME 91 fl (80.0-100.0); MEAN CORPUSCULAR HEMOGLOBIN 31 pg (27.0-31.0); MEAN CORPUSCULAR HGB CONC 34 g/dl (33.0-37.0); MEAN PLATELET VOLUME 9.6 fl (7.4-10.4); PLATELET COUNT 242 K/mm3 (130-400); RED BLOOD COUNT 3.66 M/mm3 (4.20-5.60); REDCELL DISTRIBUTION WIDTH-CV 15.2 % (11.5-14.5)
[2018-12-09 10:59] LABS: BAND 43 % (0-10); BASOPHIL 3 % (0-2); EOSINOPHIL 3 % (0-4); LYMPHOCYTE 13 % (20.0-51.0); METAMYELOCYTE 15 % (0-0); NEUTROPHILS 15 % (42.0-75.2); NUCLEATED RED BLOOD CELL 1 (0-6)
[2018-12-09 11:00] LABS: PLATELET ESTIMATE NORMAL (NORMAL)
[2018-12-09 11:01] LABS: ANISOCYTOSIS 1+; HYPOCHROMIA 1+
[2018-12-09 11:02] LABS: MICROCYTOSIS 1+
[2018-12-09 11:03] LABS: OVALOCYTES 1+
[2018-12-09 11:04] LABS: STOMATOCYTE 1+
[2018-12-09 11:06] LABS: POLYCHROMASIA 1+
[2018-12-09 15:06] LABS: PATHOLOGY DIFF REVIEW OK
[2018-12-16 10:54] LABS: MEAN CELL VOLUME 90 fl (80.0-100.0); MEAN CORPUSCULAR HEMOGLOBIN 31 pg (27.0-31.0); MEAN CORPUSCULAR HGB CONC 34 g/dl (33.0-37.0); MEAN PLATELET VOLUME 10.4 fl (7.4-10.4); PLATELET COUNT 236 K/mm3 (130-400); REDCELL DISTRIBUTION WIDTH-CV 15.4 % (11.5-14.5)
[2018-12-16 10:57] LABS: HEMATOCRIT 32.3 % (42.0-52.0)
[2018-12-16 11:18] LABS: BAND 3 % (0-10); BASOPHIL 1 % (0-2); EOSINOPHIL 3 % (0-4); LYMPHOCYTE 21 % (20.0-51.0); NEUTROPHILS 56 % (42.0-75.2); NUCLEATED RED BLOOD CELL 1 (0-6); PLATELET ESTIMATE NORMAL (NORMAL)
[2018-12-16 11:19] LABS: STOMATOCYTE 1+
[2018-12-23 07:58] LABS: HEMOGLOBIN 10.6 g/dl (13.5-18.0); MEAN CELL VOLUME 93 fl (80.0-100.0); MEAN CORPUSCULAR HEMOGLOBIN 31 pg (27.0-31.0); MEAN CORPUSCULAR HGB CONC 34 g/dl (33.0-37.0); PLATELET COUNT 250 K/mm3 (130-400); RED BLOOD COUNT 3.41 M/mm3 (4.20-5.60); REDCELL DISTRIBUTION WIDTH-CV 15.5 % (11.5-14.5)
[2018-12-23 08:00] VITALS: BP 123/76; PULSE 67; TEMP 98.3
[2018-12-23 08:00] LABS: HEMATOCRIT 31.6 % (42.0-52.0)
--- NOTE | 2018-12-23 08:00 | NUR ---
PICC intact right upper arm. With sterile technique right upper arm dressing change done with insertion site cleansed with ChloraPrep 1, chlorhexidine impregnated disc applied, StatLock, skin prep, and Tegaderm applied. No signs or symptoms of IV complications noted. No concerns voiced. Patient to return next week for cares on Wednesday. Voiced understanding of instructions.
[2018-12-23 09:33] LABS: BASOPHIL 1 % (0-2); LYMPHOCYTE 27 % (20.0-51.0); NEUTROPHILS 68 % (42.0-75.2); PLATELET ESTIMATE NORMAL (NORMAL)
[2018-12-23 09:34] LABS: STOMATOCYTE 1+
[2018-12-30 10:30] VITALS: BP 122/63; PULSE 121; TEMP 98.2
[2018-12-30 10:31] LABS: HEMATOCRIT 30.9 % (42.0-52.0); HEMOGLOBIN 10.3 g/dl (13.5-18.0); MEAN CELL VOLUME 92 fl (80.0-100.0); MEAN CORPUSCULAR HEMOGLOBIN 31 pg (27.0-31.0); MEAN CORPUSCULAR HGB CONC 33 g/dl (33.0-37.0); MEAN PLATELET VOLUME 10.1 fl (7.4-10.4); PLATELET COUNT 123 K/mm3 (130-400); RED BLOOD COUNT 3.36 M/mm3 (4.20-5.60); REDCELL DISTRIBUTION WIDTH-CV 14.8 % (11.5-14.5)
[2018-12-30 10:43] LABS: ALBUMIN 4.1 gm/dL (3.5-5.0); BILIRUBIN,TOTAL 0.5 mg/dL (0.0-1.0); CALCIUM 9.6 mg/dL (8.4-10.2); CREATININE, serum 0.63 (0.66-1.25); MAGNESIUM 1.7 mg/dL (1.6-2.3); POTASSIUM 3.9 mmol/L (3.4-5.0)
[2018-12-30 11:01] LABS: BAND 6 % (0-10); BASOPHIL 2 % (0-2); EOSINOPHIL 2 % (0-4); LYMPHOCYTE 20 % (20.0-51.0); METAMYELOCYTE 1 % (0-0); MYELOCYTE 2 % (0-0); NEUTROPHILS 47 % (42.0-75.2); NUCLEATED RED BLOOD CELL 6 (0-6)
[2018-12-30 11:02] LABS: PLATELET ESTIMATE DECREASED (NORMAL)
--- NOTE | 2019-01-06 09:50 | NUR ---
patient is here for PICC cares. Patient's dressing is intact and site with outer edges rolled out. Technique right upper arm PICC dressing change done with insertion site cleansed with ChloraPrep 1, chlorhexidine impregnated disc applied, skin prep, StatLock, and Tegaderm applied. Extr Tegaderm applied on top of dressing. No signs or symptoms of IV complications noted. No concerns voiced. Patient to return next week for cares. Patient voiced understanding of instructions.
[2019-01-06 09:55] LABS: HEMOGLOBIN 11.1 g/dl (13.5-18.0); MEAN CELL VOLUME 93 fl (80.0-100.0); MEAN CORPUSCULAR HEMOGLOBIN 31 pg (27.0-31.0); MEAN CORPUSCULAR HGB CONC 33 g/dl (33.0-37.0); MEAN PLATELET VOLUME 10.6 fl (7.4-10.4); PLATELET COUNT 180 K/mm3 (130-400); REDCELL DISTRIBUTION WIDTH-CV 14.9 % (11.5-14.5)
[2019-01-06 09:56] LABS: HEMATOCRIT 33.5 % (42.0-52.0)
[2019-01-06 09:58] VITALS: BP 141/85; PULSE 90; TEMP 97.5
[2019-01-06 11:01] LABS: BAND 10 % (0-10); EOSINOPHIL 1 % (0-4); LYMPHOCYTE 14 % (20.0-51.0); MYELOCYTE 2 % (0-0); NEUTROPHILS 64 % (42.0-75.2); NUCLEATED RED BLOOD CELL 1 (0-6); PLATELET ESTIMATE NORMAL (NORMAL)
[2019-01-06 11:05] LABS: STOMATOCYTE 3+
[2019-01-06 11:06] LABS: ANISOCYTOSIS 1+; TOXIC GRANULATION PRESENT
[2019-01-13 10:35] LABS: HEMOGLOBIN 10.5 g/dl (13.5-18.0); MEAN CELL VOLUME 93 fl (80.0-100.0); MEAN CORPUSCULAR HEMOGLOBIN 31 pg (27.0-31.0); MEAN CORPUSCULAR HGB CONC 33 g/dl (33.0-37.0); MEAN PLATELET VOLUME 9.8 fl (7.4-10.4); PLATELET COUNT 169 K/mm3 (130-400); REDCELL DISTRIBUTION WIDTH-CV 15.4 % (11.5-14.5)
[2019-01-13 10:39] VITALS: BP 125/84; PULSE 96; TEMP 98.3
[2019-01-13 10:39] LABS: HEMATOCRIT 31.6 % (42.0-52.0)
[2019-01-13 10:42] LABS: BAND 8 % (0-10); DOHLE BODIES PRESENT; LYMPHOCYTE 6 % (20.0-51.0); NEUTROPHILS 85 % (42.0-75.2); PLATELET ESTIMATE NORMAL (NORMAL); TOXIC GRANULATION PRESENT
[2019-01-13 10:43] LABS: ANISOCYTOSIS 1+
--- NOTE | 2019-01-13 10:51 | NUR ---
Called DR. Parisi's nurse at the [facility] and reported critical WBC lab value today.
[2019-01-13 10:54] LABS: BILIRUBIN,TOTAL 0.5 mg/dL (0.0-1.0); CALCIUM 9.2 mg/dL (8.4-10.2); CREATININE, serum 0.61 (0.66-1.25); POTASSIUM 3.5 mmol/L (3.4-5.0)
--- NOTE | 2019-01-20 10:15 | NUR ---
in the express unit for cares. With sterile technique right upper arm PICC dressing change done with insertion site cleansed with ChloraPrep 1, chlorhexidine impregnated disc applied, skin prep, StatLock, and Tegaderm applied. No signs or symptoms of IV complications noted. No concerns voiced. Arm wrapped with Lalo to protect catheter. Patient to return next week for cares. Patient voiced understanding of instructions.
[2019-01-20 10:31] LABS: HEMATOCRIT 33.6 % (42.0-52.0); MEAN CELL VOLUME 94 fl (80.0-100.0); MEAN CORPUSCULAR HEMOGLOBIN 31 pg (27.0-31.0); MEAN CORPUSCULAR HGB CONC 33 g/dl (33.0-37.0); MEAN PLATELET VOLUME 10.7 fl (7.4-10.4); PLATELET COUNT 198 K/mm3 (130-400); RED BLOOD COUNT 3.58 M/mm3 (4.20-5.60); REDCELL DISTRIBUTION WIDTH-CV 15.9 % (11.5-14.5)
[2019-01-20 10:38] VITALS: BP 138/76; PULSE 94; TEMP 98
[2019-01-20 11:04] LABS: BAND 30 % (0-10); LYMPHOCYTE 15 % (20.0-51.0); METAMYELOCYTE 2 % (0-0); MYELOCYTE 2 % (0-0); NEUTROPHILS 42 % (42.0-75.2); NUCLEATED RED BLOOD CELL 1 (0-6); PLATELET ESTIMATE NORMAL (NORMAL)
[2019-01-27 10:00] VITALS: BP 144/80; PULSE 116; TEMP 97.9
--- NOTE | 2019-01-27 10:15 | NUR ---
Here for cares. PICC intact right upper arm with sterile dressing change done with insertion site cleansed with chloraprep x 1, chlorhexidine impregnated disk applied, skin prep, stat lock, and tegaderm applied. no signs or symptoms of IV complications noted. no concerns voiced. re-wrapped with claudia to protect catheter. to return next week for cares. voiced understanding of instructions.,
[2019-01-27 10:38] LABS: HEMOGLOBIN 11.6 g/dl (13.5-18.0); MEAN CELL VOLUME 94 fl (80.0-100.0); MEAN CORPUSCULAR HEMOGLOBIN 31 pg (27.0-31.0); MEAN CORPUSCULAR HGB CONC 33 g/dl (33.0-37.0); MEAN PLATELET VOLUME 10.3 fl (7.4-10.4); PLATELET COUNT 258 K/mm3 (130-400); RED BLOOD COUNT 3.75 M/mm3 (4.20-5.60); REDCELL DISTRIBUTION WIDTH-CV 15.9 % (11.5-14.5)
[2019-01-27 10:44] LABS: HEMATOCRIT 35.2 % (42.0-52.0)
[2019-01-27 10:48] LABS: ALBUMIN 4.4 gm/dL (3.5-5.0); BILIRUBIN,TOTAL 0.7 mg/dL (0.0-1.0); CALCIUM 9.8 mg/dL (8.4-10.2); CREATININE, serum 0.65 (0.66-1.25); MAGNESIUM 1.6 mg/dL (1.6-2.3); TOTAL PROTEIN 7.6 gm/dL (6.4-8.2)
[2019-01-27 11:03] LABS: BAND 4 % (0-10); BASOPHIL 1 % (0-2); EOSINOPHIL 2 % (0-4); LYMPHOCYTE 13 % (20.0-51.0); METAMYELOCYTE 1 % (0-0); NEUTROPHILS 72 % (42.0-75.2); PLATELET ESTIMATE NORMAL (NORMAL)
[2019-02-03 08:21] LABS: MEAN CELL VOLUME 96 fl (80.0-100.0); MEAN CORPUSCULAR HGB CONC 33 g/dl (33.0-37.0); MEAN PLATELET VOLUME 9.9 fl (7.4-10.4); PLATELET COUNT 205 K/mm3 (130-400); RED BLOOD COUNT 3.08 M/mm3 (4.20-5.60); REDCELL DISTRIBUTION WIDTH-CV 15.5 % (11.5-14.5)
[2019-02-03 08:22] LABS: HEMATOCRIT 29.5 % (42.0-52.0); HEMOGLOBIN 9.7 g/dl (13.5-18.0); MEAN CORPUSCULAR HEMOGLOBIN 31 pg (27.0-31.0)
[2019-02-03 08:35] LABS: LYMPHOCYTE 24 % (20.0-51.0); NEUTROPHILS 72 % (42.0-75.2); PLATELET ESTIMATE NORMAL (NORMAL)
[2019-02-03 08:38] LABS: ALBUMIN 3.5 gm/dL (3.5-5.0); BILIRUBIN,TOTAL 0.7 mg/dL (0.0-1.0); CALCIUM 8.4 mg/dL (8.4-10.2); CREATININE, serum 0.51 (0.66-1.25); POTASSIUM 4.1 mmol/L (3.4-5.0)
[2019-02-03 09:48] VITALS: BP 150/85; PULSE 86; TEMP 98.3
[2019-02-10 17:33] VITALS: BP 138/75; PULSE 109; TEMP 98.7
[2019-02-10 17:40] LABS: MEAN CELL VOLUME 94 fl (80.0-100.0); MEAN CORPUSCULAR HGB CONC 34 g/dl (33.0-37.0); MEAN PLATELET VOLUME 11.3 fl (7.4-10.4); PLATELET COUNT 93 K/mm3 (130-400); RED BLOOD COUNT 3.04 M/mm3 (4.20-5.60); REDCELL DISTRIBUTION WIDTH-CV 13.5 % (11.5-14.5)
[2019-02-10 17:43] LABS: HEMATOCRIT 28.6 % (42.0-52.0); HEMOGLOBIN 9.7 g/dl (13.5-18.0); MEAN CORPUSCULAR HEMOGLOBIN 32 pg (27.0-31.0)
[2019-02-10 19:28] LABS: BAND 39 % (0-10); EOSINOPHIL 1 % (0-4); LYMPHOCYTE 25 % (20.0-51.0); METAMYELOCYTE 2 % (0-0); MYELOCYTE 2 % (0-0); NEUTROPHILS 15 % (42.0-75.2); NUCLEATED RED BLOOD CELL 2 (0-6); PLATELET ESTIMATE NORMAL (NORMAL); POLYCHROMASIA 2+
[2019-02-10 19:29] LABS: ANISOCYTOSIS 1+; HYPOCHROMIA 1+
[2019-02-11 10:35] LABS: PATHOLOGY DIFF REVIEW OK +
--- NOTE | 2019-02-17 09:35 | NUR ---
Here for PICC cares. With sterile technique right upper arm PICC dressing change done with insertion site cleansed with ChloraPrep 1, chlorhexidine impregnated disc applied, skin prep, StatLock, and Tegaderm applied. Both Changed and flushed with 10 mL normal saline with good blood return noted. Lab drawn. No signs or symptoms of IV complications noted. No concerns voiced. Patient to return next week for cares. Patient voiced understanding of instructions.
[2019-02-17 09:47] LABS: HEMOGLOBIN 10.7 g/dl (13.5-18.0); MEAN CELL VOLUME 96 fl (80.0-100.0); MEAN CORPUSCULAR HEMOGLOBIN 32 pg (27.0-31.0); MEAN CORPUSCULAR HGB CONC 33 g/dl (33.0-37.0); MEAN PLATELET VOLUME 10.6 fl (7.4-10.4); PLATELET COUNT 178 K/mm3 (130-400); RED BLOOD COUNT 3.37 M/mm3 (4.20-5.60); REDCELL DISTRIBUTION WIDTH-CV 14.5 % (11.5-14.5)
[2019-02-17 09:56] VITALS: BP 129/81; PULSE 81; TEMP 97.7
[2019-02-17 10:03] LABS: HEMATOCRIT 32.4 % (42.0-52.0)
[2019-02-17 10:30] LABS: BAND 20 % (0-10); EOSINOPHIL 1 % (0-4); LYMPHOCYTE 12 % (20.0-51.0); NEUTROPHILS 61 % (42.0-75.2)
[2019-02-17 10:31] LABS: PLATELET ESTIMATE NORMAL (NORMAL)
[~2019-02-24] VITALS: Ht 198.1 cm; Wt 160.2 kg
[2019-02-24 10:17] VITALS: BP 130/69; PULSE 88; TEMP 98.9
--- NOTE | 2019-02-24 10:30 | NUR ---
PICC intact right upper arm with sterile dressing change done with insertion site cleansed with chloraprep x 1, chlorhexidine impregnated disk applied, skin prep, stat lock, and tegaderm applied. no signs or sypmtoms of of IV complications noted. no concerns voiced. re-wrapped with claudia to protect catheter. patient to return next week for cares. voiced understanding of instructions.
[2019-02-24 10:50] LABS: HEMOGLOBIN 10.1 g/dl (13.5-18.0); MEAN CELL VOLUME 97 fl (80.0-100.0); MEAN CORPUSCULAR HEMOGLOBIN 32 pg (27.0-31.0); MEAN CORPUSCULAR HGB CONC 33 g/dl (33.0-37.0); MEAN PLATELET VOLUME 10.4 fl (7.4-10.4); PLATELET COUNT 173 K/mm3 (130-400); RED BLOOD COUNT 3.13 M/mm3 (4.20-5.60); REDCELL DISTRIBUTION WIDTH-CV 14.9 % (11.5-14.5)
[2019-02-24 11:17] LABS: HEMATOCRIT 30.3 % (42.0-52.0)
[2019-02-24 12:04] LABS: BAND 22 % (0-10); DOHLE BODIES PRESENT; LYMPHOCYTE 3 % (20.0-51.0); NEUTROPHILS 75 % (42.0-75.2); TOXIC GRANULATION PRESENT
== END 2019-03-02 ==
LOC: EUO
PROVIDERS: Internal Medicine Medical Oncology
DX: C49.21 Malignant neoplasm of connective and soft tissue of right lower limb, including hip (principal)

== ENCOUNTER 2019-04-07 10:00 | Outpatient (RCR) | payer MEDICAID ==
--- NOTE | 2019-03-03 10:30 | NUR ---
PICC intact right upper arm with sterile dressing change done with insertion site cleansed with chloraprep x 1, chlorhexidine impregnated disk, skin prep, stat lock, and tegaderm applied. no signs or symptoms of IV complications noted. no concerns voiced. wrapped with claudia to protect catheter. to return next week for cares. voiced understanding of instructions.
[2019-03-03 10:43] VITALS: BP 123/75; PULSE 80; TEMP 98.1
[2019-03-03 10:59] LABS: MEAN CELL VOLUME 99 fl (80.0-100.0); MEAN CORPUSCULAR HGB CONC 33 g/dl (33.0-37.0); MEAN PLATELET VOLUME 10.9 fl (7.4-10.4); PLATELET COUNT 150 K/mm3 (130-400); RED BLOOD COUNT 2.89 M/mm3 (4.20-5.60); REDCELL DISTRIBUTION WIDTH-CV 14.9 % (11.5-14.5)
[2019-03-03 11:12] LABS: HEMATOCRIT 28.6 % (42.0-52.0); HEMOGLOBIN 9.4 g/dl (13.5-18.0); MEAN CORPUSCULAR HEMOGLOBIN 33 pg (27.0-31.0)
[2019-03-03 12:10] LABS: BAND 47 % (0-10); EOSINOPHIL 2 % (0-4); LYMPHOCYTE 13 % (20.0-51.0); METAMYELOCYTE 3 % (0-0); NEUTROPHILS 24 % (42.0-75.2); NUCLEATED RED BLOOD CELL 2 (0-6)
[2019-03-03 12:11] LABS: ANISOCYTOSIS 2+; PLATELET ESTIMATE NORMAL (NORMAL)
[2019-03-03 12:12] LABS: HYPOCHROMIA 1+
[2019-03-03 12:13] LABS: POLYCHROMASIA 1+
[2019-03-09 14:26] VITALS: BP 151/88; PULSE 92; TEMP 98.1
[2019-03-09 14:33] LABS: HEMOGLOBIN 10.4 g/dl (13.5-18.0); MEAN CELL VOLUME 100 fl (80.0-100.0); MEAN CORPUSCULAR HEMOGLOBIN 33 pg (27.0-31.0); MEAN CORPUSCULAR HGB CONC 33 g/dl (33.0-37.0); MEAN PLATELET VOLUME 10.4 fl (7.4-10.4); PLATELET COUNT 232 K/mm3 (130-400); RED BLOOD COUNT 3.18 M/mm3 (4.20-5.60); REDCELL DISTRIBUTION WIDTH-CV 16.5 % (11.5-14.5)
[2019-03-09 14:38] LABS: HEMATOCRIT 31.9 % (42.0-52.0)
--- NOTE | 2019-03-09 14:45 | NUR ---
Here for PICC cares. With sterile technique right upper arm PICC dressing change done with insertion site cleansed with ChloraPrep 1, chlorhexidine impregnated disc applied, skin prep, StatLock, and Tegaderm applied. No signs or symptoms of IV complications noted. No concerns voiced. Arm wrapped with Lalo to protect catheter. An extra Tegaderm was applied on top of dressing. Plan is for patient to return next week for cares. Patient voiced understanding of instructions. Patient reports he had one "heck" of a weekend. Was admitted to the hospital in [place] where dressing change on his PICC line was performed. Insertion site now and 0 marking on catheter.
[2019-03-09 14:48] LABS: BAND 21 % (0-10); LYMPHOCYTE 15 % (20.0-51.0); METAMYELOCYTE 6 % (0-0); NEUTROPHILS 49 % (42.0-75.2)
[2019-03-09 14:49] LABS: ANISOCYTOSIS 1+; PLATELET ESTIMATE NORMAL (NORMAL)
[2019-03-09 14:50] LABS: POLYCHROMASIA 1+
--- NOTE | 2019-03-17 10:10 | NUR ---
patient is here for cares. With sterile technique right upper arm PICC dressing change done with insertion site cleansed with ChloraPrep 1, chlorhexidine impregnated disc applied, skin prep, StatLock, and Tegaderm applied. No signs or symptoms of IV complications noted. No concerns voiced. Patient to return next week for cares. Arm wrapped with Lalo to protect catheter. Patient voiced understanding of instructions.
[2019-03-17 10:13] LABS: HEMOGLOBIN 11.7 g/dl (13.5-18.0); MEAN CELL VOLUME 99 fl (80.0-100.0); MEAN CORPUSCULAR HEMOGLOBIN 32 pg (27.0-31.0); MEAN CORPUSCULAR HGB CONC 33 g/dl (33.0-37.0); PLATELET COUNT 276 K/mm3 (130-400); RED BLOOD COUNT 3.62 M/mm3 (4.20-5.60); REDCELL DISTRIBUTION WIDTH-CV 14.8 % (11.5-14.5)
[2019-03-17 10:15] VITALS: BP 112/56; PULSE 81; TEMP 97.9
[2019-03-17 10:23] LABS: HEMATOCRIT 35.9 % (42.0-52.0)
[2019-03-17 10:50] LABS: BAND 4 % (0-10); BASOPHIL 1 % (0-2); EOSINOPHIL 2 % (0-4); LYMPHOCYTE 20 % (20.0-51.0); NEUTROPHILS 65 % (42.0-75.2); PLATELET ESTIMATE NORMAL (NORMAL)
[2019-03-17 11:09] LABS: ALBUMIN 4.1 gm/dL (3.5-5.0); BILIRUBIN,TOTAL 0.5 mg/dL (0.0-1.0); CALCIUM 9.3 mg/dL (8.4-10.2); CREATININE, serum 0.63 (0.66-1.25); POTASSIUM 4.1 mmol/L (3.4-5.0); TOTAL PROTEIN 7.4 gm/dL (6.4-8.2)
[2019-03-24 08:09] LABS: HEMOGLOBIN 11.2 g/dl (13.5-18.0); MEAN CELL VOLUME 98 fl (80.0-100.0); MEAN CORPUSCULAR HEMOGLOBIN 32 pg (27.0-31.0); MEAN CORPUSCULAR HGB CONC 32 g/dl (33.0-37.0); MEAN PLATELET VOLUME 10.1 fl (7.4-10.4); PLATELET COUNT 277 K/mm3 (130-400); RED BLOOD COUNT 3.52 M/mm3 (4.20-5.60); REDCELL DISTRIBUTION WIDTH-CV 13.4 % (11.5-14.5)
[2019-03-24 08:12] LABS: HEMATOCRIT 34.6 % (42.0-52.0)
[2019-03-24 09:06] LABS: EOSINOPHIL 1 % (0-4); LYMPHOCYTE 28 % (20.0-51.0); NEUTROPHILS 68 % (42.0-75.2); PLATELET ESTIMATE NORMAL (NORMAL)
[2019-03-31 09:57] VITALS: BP 134/87; PULSE 116; TEMP 97.4
[2019-03-31 10:17] LABS: HEMOGLOBIN 11.2 g/dl (13.5-18.0); MEAN CELL VOLUME 94 fl (80.0-100.0); MEAN CORPUSCULAR HEMOGLOBIN 32 pg (27.0-31.0); MEAN CORPUSCULAR HGB CONC 33 g/dl (33.0-37.0); MEAN PLATELET VOLUME 11.4 fl (7.4-10.4); PLATELET COUNT 86 K/mm3 (130-400); RED BLOOD COUNT 3.55 M/mm3 (4.20-5.60); REDCELL DISTRIBUTION WIDTH-CV 12.9 % (11.5-14.5)
[2019-03-31 10:19] LABS: HEMATOCRIT 33.5 % (42.0-52.0)
--- NOTE | 2019-03-31 10:20 | NUR ---
patient here for cares. With sterile technique right upper arm PICC dressing change done with insertion site cleansed with ChloraPrep 1, chlorhexidine impregnated disc applied, skin prep, StatLock, and Tegaderm applied. No signs or symptoms of IV complications noted. No concerns voiced. Extra Tegaderm applied on top of dressing. Arm wrapped with Lalo to protect catheter. Patient plans to return next week for cares. Patient voiced understanding of instructions.
--- NOTE | 2019-03-31 10:28 | NUR ---
Patient wheeled self out with son at his side. PICC line dressing change. Patient tolerated well. No further needs expressed from patient.
[2019-03-31 10:46] LABS: BAND 1 % (0-10); BASOPHIL 1 % (0-2); EOSINOPHIL 5 % (0-4); LYMPHOCYTE 9 % (20.0-51.0); MYELOCYTE 17 % (0-0); NEUTROPHILS 43 % (42.0-75.2); PLATELET ESTIMATE DECREASED (NORMAL)
[~2019-04-07] VITALS: Ht 198.1 cm; Wt 162.6 kg
[2019-04-07 10:03] VITALS: BP 144/86; PULSE 83; TEMP 97.7
== END 2019-04-07 12:40 | disposition home or self-care (01) ==
LOC: EUO 10:00
PROVIDERS: Internal Medicine Medical Oncology
DX: C49.21 Malignant neoplasm of connective and soft tissue of right lower limb, including hip (principal)